=== PATIENT | male | born 1970 | race Hispanic/Latino ===

== ENCOUNTER 2017-09-19 03:00 | Emergency (ER) | payer OTHER ==
[2017-09-19 03:44] VITALS: BP 147/103
--- NOTE | 2017-09-19 04:14 | XRay Report ---
FINAL REPORT EXAM: XR FOOT 3+V RT HISTORY: swelling, possible deformity s/p injury TECHNIQUE: Three views of the right foot were submitted. FINDINGS: There is a nondisplaced transverse acute to subacute fracture of the proximal shaft of the 2nd metatarsal. There are no additional fractures. There is a small plantar calcaneal spur. Soft tissues otherwise are unremarkable. IMPRESSION: Nondisplaced transverse acute to subacute fracture of the proximal shaft of the 2nd metatarsal. Plantar calcaneal spur.
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
== END 2017-09-19 05:25 ==
LOC: ED 03:00
DX: S92.324A Nondisplaced fracture of second metatarsal bone, right foot, initial encounter for closed fracture (principal); I10 Essential (primary) hypertension; E11.9 Type 2 diabetes mellitus without complications; F17.200 Nicotine dependence, unspecified, uncomplicated; X58.XXXA Exposure to other specified factors, initial encounter; Y93.89 Activity, other specified; Y92.89 Other specified places as the place of occurrence of the external cause; Y99.8 Other external cause status
CPT/HCPCS: 99283